=== PATIENT | male | born 1945 | race Caucasian/White ===

== ENCOUNTER → 2017-05-13 | Outpatient (CLI) | payer MEDICARE, OTHER ==
[~2017-05-13] MED LIST: ADVIL200 MG PO; ASPIR 8181 M1 PO; CEFTIN250 MG PO; CIPROFLOXACIN500 M1 PO; COLACE100 MG PO; DITROPAN XL5 MG PO; FLONASE ALLERG9.9 ML BOTH NARES; LISINOPRIL10 MG PO; MELATONIN5 M1 PO; MIRTAZAPINE7.5 MG PO; MUCINEX DM ER1 EACH PO; NEXIUM40 MG PO; OXECTA5 MG PO; PROTONIX40 MG PO; REMERON PO; SIMVASTATIN40 MG PO; ULTRAM50 MG PO; ZANTAC150 MG PO; ZOFRAN4 MG PO; ZYRTEC10 M3 PO
== END | disposition home or self-care (01) ==
LOC: CDC 14:59
DX: Z01.810 Encounter for preprocedural cardiovascular examination (principal); I45.4 Nonspecific intraventricular block
CPT/HCPCS: 93000

== ENCOUNTER 2017-05-18 09:04 | Day surgery (SDC) | payer OTHER ==
[~2017-05-18] VITALS: Ht 167.6 cm; Wt 70.2 kg
[2017-05-18 09:30] VITALS: BP 152/96
[2017-05-18] MEDS ORDERED: TYLENOL EXTRA500 MG PO (09:40)
[2017-05-18] MEDS ORDERED: COLACE100 MG PO (15:12)
[2017-05-18] MEDS ORDERED: ULTRAM50 MG PO (15:12)
[2017-05-18 16:16] VITALS: BP 176/96
[2017-05-18 17:16] VITALS: BP 155/82
[2017-05-18 17:58] VITALS: BP 153/78
== END 2017-05-18 18:07 | disposition home or self-care (01) ==
LOC: SDC 09:04
PROC: 0YU54JZ Supplement Right Inguinal Region with Synthetic Substitute, Percutaneous Endoscopic Approach (ICD-10-PCS; principal; 2017-05-18)
DX: K40.91 Unilateral inguinal hernia, without obstruction or gangrene, recurrent (principal); K43.2 Incisional hernia without obstruction or gangrene; K66.0 Peritoneal adhesions (postprocedural) (postinfection); Z87.891 Personal history of nicotine dependence; E78.5 Hyperlipidemia, unspecified; I10 Essential (primary) hypertension; C61 Malignant neoplasm of prostate; Z82.3 Family history of stroke; Z82.5 Family history of asthma and other chronic lower respiratory diseases
CPT/HCPCS: C1781; J0690; J1100; J2001; J2250; J2405; J2710; J2795; J3010; J3475